=== PATIENT | female | born 1995 | race Caucasian/White ===

== ENCOUNTER 2016-10-28 10:23 | Emergency (ER) | payer OTHER ==
[2016-10-28 10:27] VITALS: BP 128/73; PULSE 121; RESP 18; TEMP 98.5
[2016-10-28 11:35] LABS: Basophils # (A) 0.1 k/uL (0-0.2); Basophils % (A) 1 %; CH 30.2; CHCM 33.9; Eosinophils # (A) 0.1 k/uL (0-0.7); Eosinophils % (A) 1 %; HDW 2.33; HGB 13.8 gm/dL (11.4-16.0); Luc # (Auto) 0.13; Luc % (Auto) 2; Lymphocytes # (A) 2.1 k/uL (1.0-4.8); Lymphocytes % (A) 25 %; MCH 29.5 pg (25.0-35.0); MCHC 32.9 g/dL (31.0-37.0); MCV 89.5 fL (80.0-100.0); Mean Platelet Volume 7.1; Monocytes # (A) 0.5 k/uL (0-1.0); Monocytes % (A) 6 %; Neutrophils # (A) 5.6 k/uL (1.3-7.7); Neutrophils % (A) 66 %; RDW 14.6 % (11.5-15.5); WBC 8.5 k/uL (3.8-10.6); WBC (Perox) 8.64
--- NOTE | 2016-10-28 12:02 | ED ---
Female Urogenital HPI - General Chief complaint: Vaginal Bleeding Stated complaint: Bleeding, 12 weeks preg Time Seen by Provider: 10/28/16 10:59 Source: patient, RN notes reviewed, old records reviewed Mode of arrival: ambulatory Limitations: no limitations - History of Present Illness Initial comments: This is a 21-year-old female presents emergency Department chief complaint of vaginal bleeding for the past day. Patient reports that she is currently 11 weeks . She states that her DRUM DRIER OPERATOR is Dr. Luke. This is her third she's had one living child and has had one elective . Patient states that she has noticed increased cramping and pain. Patient states that she's had no nausea or vomiting or any other associated symptoms. She states that she's been taking vitamins. She has not had an ultrasound at this time due to the early . - Related Data Home Medications Medication Instructions Recorded Confirmed Pnv,Calcium 72/Iron/Folic Acid 1 tab PO DAILY 10/28/16 10/28/16 [ Plus Tablet] Allergies Allergy/AdvReac Type Severity Reaction Status Date / Time No Known Allergies Allergy Verified 10/28/16 10:47 Review of Systems ROS Statement: Those systems with pertinent positive or pertinent negative responses have been documented in the HPI. ROS Other: All systems not noted in ROS Statement are negative. Past Medical History Past Medical History: No Reported History Additional Past Medical History / Comment(s): HAVING BLURRED VISION, DIZZYNESS FOR PAST 5 MONTHS History of Any Multi-Drug Resistant Organisms: None Reported Past Surgical History: Section Past Anesthesia/Blood Transfusion Reactions: No Reported Reaction Additional Past Anesthesia/Blood Transfusion Reaction / Comment(s): NO PRIOR ANESTHESIA Past Psychological History: No Psychological Hx Reported Smoking Status: Current every day smoker Past Alcohol Use History: None Reported Past Drug Use History: None Reported General Exam - General Exam Comments Initial Comments: This is 21 old female. Patient does not appear to be in any acute distress. Limitations: no limitations General appearance: alert, in no apparent distress Head exam: Present: atraumatic, normocephalic, normal inspection Eye exam: Present: normal appearance, PERRL, EOMI. Absent: scleral icterus, conjunctival injection, periorbital swelling ENT exam: Present: normal exam, mucous membranes moist Neck exam: Present: normal inspection. Absent: tenderness, meningismus, lymphadenopathy Respiratory exam: Present: normal lung sounds bilaterally. Absent: respiratory distress, wheezes, rales, rhonchi, stridor Cardiovascular Exam: Present: regular rate, normal rhythm, normal heart sounds. Absent: systolic murmur, diastolic murmur, rubs, gallop, clicks GI/Abdominal exam: Present: soft, normal bowel sounds. Absent: distended, tenderness, guarding, rebound, rigid Back exam: Present: normal inspection Neurological exam: Present: alert, oriented X3, CN II-XII intact Psychiatric exam: Present: normal affect, normal mood Course Vital Signs 10/28/16 10:24 Temperature 98.5 F Pulse Rate 121 H Respiratory 18 Rate Blood Pressure 128/73 O2 Sat by Pulse 98 Oximetry Medical Decision Making - Medical Decision Making Is a 21-year-old female chief complaint of vaginal bleeding. She reports had increased cramping. She states she is approximately 11 weeks . Her OB/ MIXING TECHNICIAN is Dr. Luke. Patient's blood work showed no signs of . Ultrasound was reviewed and showed no thickened endometrium. When I went to discuss this with the patient she was missing. Patient walked out of the emergency department. Patient's CBC was within normal limits. I was unable to complete a pelvic exam, prior to her leaving. - Lab Data Result diagrams: 10/28/16 11:15 Lab Results 10/28/16 10/28/16 10/28/16 Range/Units 11:15 11:15 11:15 WBC 8.5 (3.8-10.6) k/uL RBC 4.70 (3.80-5.40) m/uL Hgb 13.8 (11.4-16.0) gm/dL Hct 42.0 (34.0-46.0) % MCV 89.5 (80.0-100.0) fL MCH 29.5 (25.0-35.0) pg MCHC 32.9 (31.0-37.0) g/dL RDW 14.6 (11.5-15.5) % Plt Count 246 (150-450) k/uL Neutrophils % 66 % Lymphocytes % 25 % Monocytes % 6 % Eosinophils % 1 % Basophils % 1 % Neutrophils # 5.6 (1.3-7.7) k/uL Lymphocytes # 2.1 (1.0-4.8) k/uL Monocytes # 0.5 (0-1.0) k/uL Eosinophils # 0.1 (0-0.7) k/uL Basophils # 0.1 (0-0.2) k/uL HCG, Quant <2.4 mIU/mL Blood Type A Positive Blood Type Recheck A Pos Disposition Clinical Impression: Vaginal bleeding Disposition: Left Against Medical Advice Condition: Stable Instructions: Dysmenorrhea (ED) Referrals: Tony Sellers Jr, DO [Primary Care Provider] - 1-2 days Time of Disposition: 13:00
--- NOTE | 2016-10-28 13:20 | US ---
EXAMINATION TYPE: US OB <=14 wks transvag DATE OF EXAM: 10/28/2016 COMPARISON: NONE CLINICAL HISTORY: Pain. bleeding with EXAM PERFORMED: Transvaginal (TV) and Transabdominal (TA) endovaginal scanning performed for better evaluation of the uterus and ovaries. EXAM MEASUREMENTS: GESTATIONAL AGE / DATING Physician Established: not established Dates by LMP: (10 weeks/6 days) EDC: 05/20/2017 Dates by First Scan: this is first scan Dates by Current Scan for: no IUP seen MATERNAL ANATOMY Uterus: 7.2 x 4.2 x 6.1 cm Right Ovary: 2.5 x 1.6 x 2.7 cm Left Ovary: 2.5 x 2.0 x 1.9 cm Post CDS / Adnexa: trace amount of free fluid GESTATION / SURVEY IUP: not identified Date of LMP: 08/13/2016 Beta HcG (if available): < 2.4, available after exam complete. Endometrium not thickened, no evidence for IUP, no mass seen in adnexa or ovaries bilaterally. IMPRESSION: Intrauterine gestation is not evident. No adnexal mass to suggest ectopic . Follow-up recomm ended.
== END 2016-10-28 13:00 | disposition left against medical advice (07) ==
LOC: EC 10:23
DX: O20.9 Hemorrhage in early pregnancy, unspecified (principal); O99.331 Smoking (tobacco) complicating pregnancy, first trimester; F17.200 Nicotine dependence, unspecified, uncomplicated; Z3A.11 11 weeks gestation of pregnancy
CPT/HCPCS: 36415; 76801; 76817; 84702; 85025; 86900; 86901; 99284

== ENCOUNTER 2017-02-06 13:37 | Emergency (ER) | payer BC, OTHER ==
[2017-02-06 13:45] VITALS: TEMP 98.2
[2017-02-06] MEDS ORDERED: METHOCARBAMOL 500 MG TAB PO STA (14:05)
[2017-02-06] MEDS ORDERED: KETOROLAC 30 MG/ML 1 ML VIAL IM STA (14:05)
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
[2017-02-06 14:31] LABS: Appearance,Urine Cloudy (Clear); Bacteria,Urine Rare /hpf; Bilirubin,Urine Negative (Negative); Glucose,Urine (UA) Negative (Negative); Ketones,Urine Negative (Negative); Leukocyte Esterase,Urine Negative (Negative); Mucus,Urine Rare /hpf; Nitrite,Urine Negative (Negative); Particle Count 2137; Protein,Urine Negative (Negative); RBC,Urine 1 /hpf (0-5); Specific Gravity,Urine 1.004 (1.001-1.035); Squamous Epithelial Cell,Urine 8 /hpf (0-4); UA Billing (MACRO vs. MICRO) MICRO; Urobilinogen,Urine <2.0 mg/dL (<2.0); WBC,Urine 2 /hpf (0-5)
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
[2017-02-06 16:02] VITALS: BP 118/63; PULSE 86; RESP 17
== END 2017-02-06 16:01 | disposition home or self-care (01) ==
LOC: EC 13:37
DX: S43.101A Unspecified dislocation of right acromioclavicular joint, initial encounter (principal); F17.200 Nicotine dependence, unspecified, uncomplicated; V49.40XA Driver injured in collision with unspecified motor vehicles in traffic accident, initial encounter; Y92.410 Unspecified street and highway as the place of occurrence of the external cause
CPT/HCPCS: 81001; 81025; 71101; 99283; 96372; J1885

== ENCOUNTER 2017-03-31 21:04 | Emergency (ER) | payer BC, OTHER ==
[~2017-03-31 21:04] MED LIST: NALOXONE 0.4 MG/ML 1 ML VIAL IV STA
[2017-03-31] MEDS ORDERED: NALOXONE 0.4 MG/ML 1 ML VIAL IV STA (21:14)
--- NOTE | 2017-03-31 21:20 | ED ---
General Adult HPI - General Chief complaint: Overdose Stated complaint: Overdose Time Seen by Provider: 03/31/17 21:07 Source: patient, RN notes reviewed Mode of arrival: ambulatory Limitations: altered mental status - History of Present Illness Initial comments: 22-year-old female dropped off by private vehicle, she is apneic, cyanotic with pinpoint pupils. No history obtained from the patient on initial presentation. She is bagged by BVM, given Narcan. Upon awakening patient does admit to using IV heroin. She denies suicide attempt. This was an accidental overdose. She denies any other substances ingested or injected. She has no complaints. - Related Data Home Medications Medication Instructions Recorded Confirmed No Known Home Medications [No 02/21/17 03/31/17 Known Home Medications] Allergies Allergy/AdvReac Type Severity Reaction Status Date / Time No Known Allergies Allergy Verified 03/31/17 21:36 Review of Systems ROS Statement: Those systems with pertinent positive or pertinent negative responses have been documented in the HPI. ROS Other: All systems not noted in ROS Statement are negative. Past Medical History Past Medical History: No Reported History Additional Past Medical History / Comment(s): HAVING BLURRED VISION, DIZZYNESS FOR PAST 5 MONTHS History of Any Multi-Drug Resistant Organisms: None Reported Past Surgical History: Section Past Anesthesia/Blood Transfusion Reactions: No Reported Reaction Additional Past Anesthesia/Blood Transfusion Reaction / Comment(s): NO PRIOR ANESTHESIA Past Psychological History: No Psychological Hx Reported Smoking Status: Current every day smoker Past Alcohol Use History: None Reported Past Drug Use History: Heroin General Exam - General Exam Comments Initial Comments: Physical exam after Narcan administration Limitations: altered mental status General appearance: alert, in no apparent distress Head exam: Present: atraumatic, normocephalic Eye exam: Present: normal appearance, PERRL ENT exam: Present: normal exam Neck exam: Present: normal inspection Respiratory exam: Present: normal lung sounds bilaterally. Absent: respiratory distress, wheezes Cardiovascular Exam: Present: regular rate, normal rhythm GI/Abdominal exam: Present: soft. Absent: distended, tenderness Extremities exam: Present: normal inspection. Absent: full ROM, tenderness Back exam: Present: normal inspection Neurological exam: Present: alert, oriented X3, CN II-XII intact, reflexes normal. Absent: motor sensory deficit Psychiatric exam: Present: normal affect, normal mood. Absent: suicidal ideation Skin exam: Present: warm, dry, intact. Absent: cyanosis, diaphoretic Course Vital Signs 03/31/17 03/31/17 03/31/17 21:05 21:18 21:56 Temperature 97.0 F L 97.4 F L Pulse Rate 147 H 124 H 80 Respiratory 16 17 18 Rate Blood Pressure 162/70 130/83 124/80 O2 Sat by Pulse 100 100 97 Oximetry Medical Decision Making - Medical Decision Making 22-year-old female presents as heroin overdose. She is reversed with 1.6 mg of Narcan, given the combination of sublingual injected, and IV. She is observed in the emergency department, for one hour 20 minutes. Patient elopes prior to discharge. According to nursing staff patient is IV was removed. Critical Care Time Critical Care Time: Yes Total Critical Care Time: 35 Disposition Clinical Impression: Poisoning by opiate or related narcotic Disposition: Left Against Medical Advice Condition: Good Instructions: Narcotic Abuse (ED) Additional Instructions: Patient eloped prior to discharge. Referrals: None,Stated [Primary Care Provider] - 1-2 days Time of Disposition: 22:15
[2017-03-31 21:58] VITALS: BP 124/80; PULSE 80; RESP 18; TEMP 97.4
== END 2017-03-31 22:20 | disposition left against medical advice (07) ==
LOC: EC 21:04
DX: T40.601A Poisoning by unspecified narcotics, accidental (unintentional), initial encounter (principal); F17.200 Nicotine dependence, unspecified, uncomplicated
CPT/HCPCS: 99284; 96374; J2310

== ENCOUNTER 2017-11-30 15:02 | Emergency (ER) | payer BC, OTHER ==
[2017-11-30 15:08] VITALS: BP 141/91; PULSE 102; RESP 18; TEMP 97.5
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
== END 2017-11-30 16:17 | disposition left against medical advice (07) ==
LOC: EC 15:02
DX: T50.901A Poisoning by unspecified drugs, medicaments and biological substances, accidental (unintentional), initial encounter (principal); F17.200 Nicotine dependence, unspecified, uncomplicated
CPT/HCPCS: 99284

== ENCOUNTER 2018-06-23 18:26 | Emergency (ER) | payer BC, OTHER ==
[2018-06-23 18:41] VITALS: TEMP 98.1
[2018-06-23] MEDS ORDERED: methylPREDNISolone SOD SUCCI 125 MG/2 ML VIAL IV STA (18:58)
[2018-06-23] MEDS ORDERED: diphenhydrAMINE 50 MG/ML 1 ML VIAL IVP STA (18:58)
[2018-06-23] MEDS ORDERED: SODIUM CHLORIDE 0.9% 500 ML 500 ML IV ONE (18:59)
[2018-06-23] MEDS ORDERED: FAMOTIDINE 20 MG/2 ML VIAL IV STA (18:59)
[2018-06-23 19:25] LABS: Basophils % (A) 1 %; Eosinophils # (A) 0.1 k/uL (0-0.7); Eosinophils % (A) 2 %; HGB 13.2 gm/dL (11.4-16.0); Lymphocytes # (A) 2.7 k/uL (1.0-4.8); Lymphocytes % (A) 36 %; MCH 28.3 pg (25.0-35.0); MCHC 32.2 g/dL (31.0-37.0); MCV 88.1 fL (80.0-100.0); Mean Platelet Volume 7.4; Monocytes # (A) 0.4 k/uL (0-1.0); Monocytes % (A) 5 %; Neutrophils # (A) 3.9 k/uL (1.3-7.7); Neutrophils % (A) 53 %; Platelet Count 262 k/uL (150-450); RBC 4.66 m/uL (3.80-5.40); RDW 14.8 % (11.5-15.5); WBC 7.4 k/uL (3.8-10.6)
[2018-06-23 19:37] LABS: ALT 130 U/L (9-52); AST 71 U/L (14-36); Albumin 4.5 g/dL (3.5-5.0); Alkaline Phosphatase 62 U/L (38-126); Anion Gap 6 mmol/L; Blood Urea Nitrogen 11 mg/dL (7-17); Calcium 9.6 mg/dL (8.4-10.2); Carbon Dioxide 30 mmol/L (22-30); Chloride 105 mmol/L (98-107); Glucose 102 mg/dL (74-99); Sodium 141 mmol/L (137-145); Total Bilirubin 0.4 mg/dL (0.2-1.3); Total Protein 7.4 g/dL (6.3-8.2)
--- NOTE | 2018-06-23 20:02 | ED ---
Female Urogenital HPI - General Chief complaint: Urogenital Stated complaint: Female Time Seen by Provider: 06/23/18 18:47 Source: patient Mode of arrival: ambulatory Limitations: no limitations - History of Present Illness Initial comments: 23-year-old female presenting today for right labial swelling. Patient states she recently started Protonix. Patient states she has been on them Friday since she was discharged from [facility] for cholecystectomy. Patient denies any sex, use a foreign body, vaginal lesions vaginal pain fever chills n ight sweats vaginal discharge or any abnormal vaginal bleeding prior to onset of symptoms. Patient states about an hour prior to presentation she began noticing swelling of her right labia she states increase exponentially. She states became very large within half an half an hour. Patient states it is difficult to feel due to the swelling. Patient denies any use of JOSELINE-inhibitors. Patient denies swelling of the lips tongue or compressive feeling of the neck. Patient denies a difficulty breathing dyspnea chest pain. Patient denies nausea vomiting abdominal pain. Remaining review of systems negative. Upon arrival patient appears well, since vital signs within normal limits. No signs of acute distress. Last Menstrual Period: 04/29/18 - Related Data Home Medications Medication Instructions Recorded Confirmed Acetaminophen [Tylenol Arthritis] 1,300 mg PO TID PRN 06/23/18 06/23/18 Ibuprofen [Motrin] 800 mg PO TID PRN 06/23/18 06/23/18 Pantoprazole [Protonix] 40 mg PO DAILY 06/23/18 06/23/18 Previous Rx's Medication Instructions Recorded Famotidine [Pepcid] 20 mg PO BID 5 Days #10 tablet 06/23/18 diphenhydrAMINE [Benadryl] 25 mg PO TID PRN 5 Days #15 capsule 06/23/18 Allergies Allergy/AdvReac Type Severity Reaction Status Date / Time No Known Allergies Allergy Verified 06/23/18 18:47 Review of Systems ROS Statement: Those systems with pertinent positive or pertinent negative responses have been documented in the HPI. ROS Other: All systems not noted in ROS Statement are negative. Past Medical History Past Medical History: No Reported History Additional Past Medical History / Comment(s): HAVING BLURRED VISION, DIZZYNESS FOR PAST 5 MONTHS History of Any Multi-Drug Resistant Organisms: None Reported Past Surgical History: Section, Cholecystectomy Past Anesthesia/Blood Transfusion Reactions: No Reported Reaction Additional Past Anesthesia/Blood Transfusion Reaction / Comment(s): NO PRIOR ANESTHESIA Past Psychological History: Anxiety, Depression Smoking Status: Current every day smoker Past Alcohol Use History: None Reported Past Drug Use History: Heroin, Marijuana General Exam - General Exam Comments Initial Comments: General: The patient is awake and alert, in no distress, and does not appear acutely ill. Eye: Pupils are equal, round and reactive to light, extra-ocular movements are intact. No nystagmus. There is normal conjunctiva bilaterally. No signs of icterus. Ears, nose, mouth and throat: There are moist mucous membranes and no oral lesions. No tongue swelling no swelling below the tongue no swelling below the angle of the mandible. No stridor. Neck: The neck is supple, there is no tenderness or JVD. Cardiovascular: There is a regular rate and rhythm. No murmur, rub or gallop is appreciated. Respiratory: Lungs are clear to auscultation, respirations are non-labored, breath sounds are equal. No wheezes, stridor, rales, or rhonchi. Gastrointestinal: Soft, non-distended, non-tender abdomen without masses or organomegaly noted. There is no rebound or guarding present. No CVA tenderness. Bowel sounds are unremarkable. Upon inspection of the external vagina significant swelling of the right labia majora, mild erythema, no significant tenderness to palpation. No area of fluctuance no evidence of bartholine or skene gland enlargement. No vaginal discharge, odor or bleeding. No external lesions. Musculoskeletal: Normal ROM, no tenderness. Strength 5/5. Sensation intact. Radial pulses equal bilaterally 2+. Neurological: A&O x 3. CN II-XII intact, There are no obvious motor or sensory deficits. Coordination appears grossly intact. Speech is normal. Skin: Skin is warm and dry and no rashes or lesions are noted. Psychiatric: Cooperative, appropriate mood & affect, normal judgment. Limitations: no limitations Course Vital Signs 06/23/18 18:37 Temperature 98.1 F Pulse Rate 74 Respiratory 18 Rate Blood Pressure 123/82 O2 Sat by Pulse 100 Oximetry - Reevaluation(s) Reevaluation #1: Pt was evaluated in person by attending provider Dr. Porter who evaluated patient and discussed patient history of presenting illness. Agrees with current impression of angio edema of the vagina. Reevaluation #2: Upon repeat examination vaginal swelling decreased after benadryl, solumedrol and pepcid. Medical Decision Making - Medical Decision Making 23-year-old female presenting percent onset of right-sided vulvar swelling. Patient has no complaints of upper airway obstruction, no stridor on exam or param dence supporting respiratory distress. Upon exam there is significant swelling, no evidence of fluctuance Bartholin's cyst or [place] gland infection. Benign abdominal exam. Given the rapid onset of symptoms, I feel this time most likely ALLERGIC reaction opposed to infectious etiology. Patient was provided Solu- Medrol Pepcid and Benadryl. Upon reevaluation significant improvement of swelling of the right side of the vulva. This supports leading differential diagnosis at this time. Pt applied ice to area. Pt requesting discharge. I recommended discontinuation of protonix. Pt was instructed to continue taking Benadryl every 8 hours. Patient will not be provided outpatient prescription for steroids as patient has recent surgical procedure, with concern for delayed healing and as recommended by attending provider Dr. Porter who evaluated patient in person agreeing with plan of care and discharge. - Lab Data Result diagrams: 06/23/18 19:10 06/23/18 19:10 Lab Results 06/23/18 06/23/18 06/23/18 Range/Units 19:10 19:10 20:08 WBC 7.4 (3.8-10.6) k/uL RBC 4.66 (3.80-5.40) m/uL Hgb 13.2 (11.4-16.0) gm/dL Hct 41.0 (34.0-46.0) % MCV 88.1 (80.0-100.0) fL MCH 28.3 (25.0-35.0) pg MCHC 32.2 (31.0-37.0) g/dL RDW 14.8 (11.5-15.5) % Plt Count 262 (150-450) k/uL Neutrophils % 53 % Lymphocytes % 36 % Monocytes % 5 % Eosinophils % 2 % Basophils % 1 % Neutrophils # 3.9 (1.3-7.7) k/uL Lymphocytes # 2.7 (1.0-4.8) k/uL Monocytes # 0.4 (0-1.0) k/uL Eosinophils # 0.1 (0-0.7) k/uL Basophils # 0.0 (0-0.2) k/uL Sodium 141 (137-145) mmol/L Potassium 4.0 (3.5-5.1) mmol/L Chloride 105 (98-107) mmol/L Carbon Dioxide 30 (22-30) mmol/L Anion Gap 6 mmol/L BUN 11 (7-17) mg/dL Creatinine 0.68 (0.52-1.04) mg/dL Est GFR (CKD-EPI)AfAm >90 (>60 ml/min/1.73 sqM) Est GFR (CKD-EPI)NonAf >90 (>60 ml/min/1.73 sqM) Glucose 102 H (74-99) mg/dL Calcium 9.6 (8.4-10.2) mg/dL Total Bilirubin 0.4 (0.2-1.3) mg/dL AST 71 H (14-36) U/L ALT 130 H (9-52) U/L Alkaline Phosphatase 62 (38-126) U/L Total Protein 7.4 (6.3-8.2) g/dL Albumin 4.5 (3.5-5.0) g/dL Urine Color Light Yellow Urine Appearance Cloudy H (Clear) Urine pH 7.0 (5.0-8.0) Ur Specific [place] 1.006 (1.001-1.035) Urine Protein Negative (Negative) Urine Glucose (UA) Negative (Negative) Urine Ketones Negative (Negative) Urine Blood Negative (Negative) Urine Nitrite Negative (Negative) Urine Bilirubin Negative (Negative) Urine Urobilinogen <2.0 (<2.0) mg/dL Ur Leukocyte Esterase Trace H (Negative) Urine RBC 1 (0-5) /hpf Urine WBC 3 (0-5) /hpf Ur Squamous Epith Cells 17 H (0-4) /hpf Urine Bacteria Occasional H (None) /hpf Urine Mucus Rare H (None) /hpf Disposition Clinical Impression: Swelling of vulva, Allergic reaction Disposition: HOME SELF-CARE Condition: Good Instructions (If sedation given, give patient instructions): Angioedema (ED) Additional Instructions: Please discontinue medication as discussed, begin new medication regime. Please follow-up with family doctor in the next 24 hours. You are to immediately return to the emergency department if symptoms return worsen or persistent, for any difficulty breathing swallowing. Sensation of tingling in the throat, swelling of tongue or lips. Please return to emergency room for any other concerns. Is patient prescribed a controlled substance at d/c from ED?: No Referrals: None,Stated [Primary Care Provider] - 1-2 days [facility] [NON-STAFF] - 1-2 days Time of Disposition: 20:30
[2018-06-23 20:27] LABS: Appearance,Urine Cloudy (Clear); Bacteria,Urine Occasional /hpf; Bilirubin,Urine Negative (Negative); Blood,Urine Negative (Negative); Color,Urine Light Yellow; Glucose,Urine (UA) Negative (Negative); Ketones,Urine Negative (Negative); Leukocyte Esterase,Urine Trace (Negative); Mucus,Urine Rare /hpf; Nitrite,Urine Negative (Negative); Protein,Urine Negative (Negative); RBC,Urine 1 /hpf (0-5); Specific Gravity,Urine 1.006 (1.001-1.035); Squamous Epithelial Cell,Urine 17 /hpf (0-4); Urobilinogen,Urine <2.0 mg/dL (<2.0); WBC,Urine 3 /hpf (0-5)
[2018-06-23 21:04] VITALS: BP 127/82; PULSE 70; RESP 16
== END 2018-06-23 21:02 | disposition home or self-care (01) ==
LOC: EC 18:26
DX: T78.40XA Allergy, unspecified, initial encounter (principal); N90.89 Other specified noninflammatory disorders of vulva and perineum; L53.9 Erythematous condition, unspecified; T78.3XXA Angioneurotic edema, initial encounter; F17.200 Nicotine dependence, unspecified, uncomplicated; Z90.49 Acquired absence of other specified parts of digestive tract; Z79.899 Other long term (current) drug therapy
CPT/HCPCS: 36415; 80053; 85025; 81001; 99283; 96374; 96375 ×2; 96361; J1200; J2930

== ENCOUNTER 2020-04-14 13:42 | Emergency (ER) | payer OTHER ==
[2020-04-14 13:46] VITALS: BP 121/81; PULSE 109; RESP 18; TEMP 98
--- NOTE | 2020-04-14 13:55 | ED ---
Medical Clearance HPI - General Chief complaint: Medical Clearance Stated complaint: [facility] Clearance Time Seen by Provider: 04/14/20 13:48 Source: patient, police, RN notes reviewed Mode of arrival: ambulatory - History of Present Illness Initial comments: This a 25-year-old female presents emergency Department with chief complaint of needing medical clearance for pen[facility]. Patient has no complaints. Patient does use heroin states that she use a few hours prior arrival. Patient denies any abdominal pain, chest pain shortness of breath fevers chills cough congestion. Patient states that she found out she was yesterday. Patient's last menstrual cycle was 5 weeks ago Home medications: Home Medications Medication Instructions Recorded Confirmed Acetaminophen [Tylenol Arthritis] 1,300 mg PO TID PRN 06/23/18 06/23/18 Ibuprofen [Motrin] 800 mg PO TID PRN 06/23/18 06/23/18 Pantoprazole [Protonix] 40 mg PO DAILY 06/23/18 06/23/18 Previous Rx's Medication Instructions Recorded Famotidine [Pepcid] 20 mg PO BID 5 Days #10 tablet 06/23/18 diphenhydrAMINE [Benadryl] 25 mg PO TID PRN 5 Days #15 capsule 06/23/18 Allergies/Adverse reactions: Allergies Allergy/AdvReac Type Severity Reaction Status Date / Time No Known Allergies Allergy Verified 04/14/20 13:46 Review of Systems ROS Statement: Those systems with pertinent positive or pertinent negative responses have been documented in the HPI. ROS Other: All systems not noted in ROS Statement are negative. Past Medical History Past Medical History: No Reported History Additional Past Medical History / Comment(s): HAVING BLURRED VISION, DIZZYNESS FOR PAST 5 MONTHS History of Any Multi-Drug Resistant Organisms: None Reported Past Surgical History: Section, Cholecystectomy Past Anesthesia/Blood Transfusion Reactions: No Reported Reaction Additional Past Anesthesia/Blood Transfusion Reaction / Comment(s): NO PRIOR ANESTHESIA Past Psychological History: Anxiety, Depression Smoking Status: Current every day smoker Past Alcohol Use History: None Reported Past Drug Use History: Heroin, Marijuana General Exam Limitations: no limitations General appearance: alert, in no apparent distress Head exam: Present: atraumatic, normocephalic, normal inspection Eye exam: Present: normal appearance, PERRL, EOMI. Absent: scleral icterus, conjunctival injection, periorbital swelling ENT exam: Present: normal exam, normal oropharynx, mucous membranes moist Neck exam: Present: normal inspection, full ROM. Absent: tenderness, meningismus, lymphadenopathy Respiratory exam: Present: normal lung sounds bilaterally. Absent: respiratory distress, wheezes, rales, rhonchi, stridor Cardiovascular Exam: Present: regular rate, normal rhythm, normal heart sounds. Absent: systolic murmur, diastolic murmur, rubs, gallop, clicks GI/Abdominal exam: Present: soft, normal bowel sounds. Absent: distended, tenderness, guarding, rebound, rigid Neurological exam: Present: alert, oriented X3, CN II-XII intact, reflexes normal. Absent: motor sensory deficit Skin exam: Present: warm, dry, intact, normal color. Absent: rash Course Vital Signs 04/14/20 13:44 Temperature 98.0 F Pulse Rate 109 H Respiratory 18 Rate Blood Pressure 121/81 O2 Sat by Pulse 99 Oximetry Medical Decision Making - Medical Decision Making Patient has no complaints this time. She does have a history of heroin abuse. Patient is with no abdominal pain or complaints. Disposition Clinical Impression: Medical clearance for incarceration Disposition: HOME SELF-CARE Condition: Stable Additional Instructions: Patient is medically cleared for incarceration Is patient prescribed a controlled substance at d/c from ED?: No Referrals: None,Stated [Primary Care Provider] - 1-2 days Time of Disposition: 13:55
== END 2020-04-14 14:00 | disposition home or self-care (01) ==
LOC: EC 13:42
DX: Z02.89 Encounter for other administrative examinations (principal); F17.200 Nicotine dependence, unspecified, uncomplicated; Z90.49 Acquired absence of other specified parts of digestive tract
CPT/HCPCS: 99281